=== PATIENT | male | born 1970 | race Caucasian/White ===

== ENCOUNTER 2020-03-30 17:36 | Emergency (ER) | payer MEDICAID ==
[2020-03-31] MEDS ORDERED: AMOX-117 PO
[2020-03-31] MEDS ORDERED: DOXY100C76 PO (00:05)
== END 2020-03-30 19:08 | disposition left against medical advice (07) ==
LOC: ER 17:36
DX: B99.9 Unspecified infectious disease (principal); Z53.21 Procedure and treatment not carried out due to patient leaving prior to being seen by health care provider

== ENCOUNTER 2020-03-30 19:39 | Emergency (ER) | payer MEDICAID ==
[~2020-03-30] VITALS: Ht 167.6 cm; Wt 75.0 kg
[2020-03-30 19:42] VITALS: BP 121/79
--- NOTE | 2020-03-30 20:53 | NUR ---
Patient complains of right wrist pain X3 days. Deformity is present. Injury occurred three days earlier while throwing wood. Patient has good distal csm's. Patient is well oriented, cooperative, no distress.
[2020-03-30] MEDS ORDERED: iohexol 300mg/ml 100ml inj. ONE (21:18)
[2020-03-30 21:45] LABS: BASOPHILS # (AUTO) 0.1 X10'3 (0-0.2); BASOPHILS % (AUTO) 0.6 % (0-1); EOSINOPHILS # (AUTO) 0.3 X10'3 (0-0.9); EOSINOPHILS % (AUTO) 2.2 % (0-6); HEMATOCRIT 42.7 % (42.0-52.0); HEMOGLOBIN 14.4 g/dl (14.0-17.9); LYMPHOCYTES # (AUTO) 1.7 X10'3 (1.1-4.8); LYMPHOCYTES % (AUTO) 11.4 % (21-51); MEAN CORPUSCULAR HEMOGLOBIN 30.2 PG (27.0-31.0); MEAN CORPUSCULAR HGB CONC 33.8 g/dL (33.0-36.5); MEAN CORPUSCULAR VOLUME 89.3 FL (78-98); MONOCYTES # (AUTO) 1.1 X10'3 (0-0.9); MONOCYTES % (AUTO) 7.7 % (2-12); NEUTROPHILS # (AUTO) 11.5 X10'3 (1.8-7.7); NEUTROPHILS % (AUTO) 78.1 % (42-75); PLATELET COUNT 312 X10'3 (140-440); RED BLOOD COUNT 4.78 X10'6 (4.70-6.10); RED CELL DISTRIBUTION WIDTH 13.6 % (11.5-14.5); WHITE BLOOD COUNT 14.7 X10'3 (4.5-11.0)
[2020-03-30 21:58] LABS: ALANINE AMINOTRANSFERASE 22 U/L (12-78); ALBUMIN 3.4 G/DL (3.4-5.0); ALBUMIN/GLOBULIN RATIO 0.8 (1.1-1.5); ALKALINE PHOSPHATASE 107 IU/L (46-116); ANION GAP 9 (8-16); ASPARTATE AMINO TRANSFERASE 21 U/L (10-37); BILIRUBIN,TOTAL 0.4 MG/DL (0.1-1.0); BLOOD UREA NITROGEN 19 MG/DL (7-18); C-REACTIVE PROTEIN 8.37 MG/DL (0.0-0.5); CALCIUM 8.7 MG/DL (8.5-10.1); CHLORIDE 102 MMOL/L (99-107); CREATININE 1.19 MG/DL (0.60-1.10); GLUCOSE 105 MG/DL (70-104); POTASSIUM 4.2 MMOL/L (3.5-5.1); SODIUM 139 MMOL/L (135-145); TOTAL CARBON DIOXIDE 27.9 MMOL/L (24-32); TOTAL PROTEIN 7.5 G/DL (6.4-8.2); eGFR 65 ML/MIN
[2020-03-30] MEDS ORDERED: LIDOcaine 1% W/epiNEPHrine 1:200,000 10ml vial IJ ONE (22:50)
--- NOTE | 2020-03-30 23:43 | NUR ---
With provider, I&D in progress.
[2020-03-31] MEDS ORDERED: AMOX-117 PO
[2020-03-31] MEDS ORDERED: amox tr/potassium clavulanate 875/125mg TAB PO ONE
[2020-03-31] MEDS ORDERED: DOXYCYCLINE 100MG CAPSULE PO STA (00:04)
[2020-03-31] MEDS ORDERED: DOXY100C76 PO (00:05)
[2020-03-31] MEDS ORDERED: HYDROcodone/acetaminophen 5mg/325mg tablet PO ONE (00:35)
== END 2020-03-31 01:28 | disposition home or self-care (01) ==
LOC: ER 19:39
DX: L02.413 Cutaneous abscess of right upper limb (principal); M25.531 Pain in right wrist; M25.431 Effusion, right wrist; F17.200 Nicotine dependence, unspecified, uncomplicated; Z72.89 Other problems related to lifestyle; Z79.2 Long term (current) use of antibiotics
CPT/HCPCS: 10060; 36415; 73110; 73201; 80053; 83605; 84145; 85025; 85651; 86140; 87040; 99285; Q9967